=== PATIENT | female | born 1990 | race African-American/Black ===

== ENCOUNTER 2017-07-19 19:32 | Emergency (ER) | payer MEDICAID, OTHER ==
[~2017-07-19] VITALS: Ht 162.6 cm; Wt 86.5 kg
[~2017-07-19 19:32] MED LIST: NONE REPORTED
[2017-07-19] MEDS ORDERED: KETOROLAC 60MG/2ML VIAL IM ONE (23:00)
[2017-07-20 02:30] VITALS: BP 119/51
== END 2017-07-20 03:53 | disposition home or self-care (01) ==
LOC: ER 20:28
DX: S16.1XXA Strain of muscle, fascia and tendon at neck level, initial encounter (principal); F17.210 Nicotine dependence, cigarettes, uncomplicated; V49.9XXA Car occupant (driver) (passenger) injured in unspecified traffic accident, initial encounter; R41.82 Altered mental status, unspecified; Y92.410 Unspecified street and highway as the place of occurrence of the external cause
CPT/HCPCS: 70450; 72125; 81025; 96372; 99284; J1885; L0172

== ENCOUNTER 2021-12-18 23:38 | Emergency (ER) | payer MEDICAID ==
[~2021-12-18] VITALS: Ht 162.6 cm; Wt 58.0 kg
[2021-12-18 23:49] VITALS: BP 99/68
[2021-12-19] MEDS ORDERED: CEPHALEXIN 250MG CAPSULE PO ONE (03:00)
[2021-12-19] MEDS ORDERED: IBUPROFEN 600MG TABLET PO ONE (03:00)
[2021-12-19] MEDS ORDERED: CEPH500C2 MT (03:27)
[2021-12-19] MEDS ORDERED: IBUP-2029 MT (03:27)
== END 2021-12-19 04:08 | disposition home or self-care (01) ==
LOC: ER 23:38
DX: L03.115 Cellulitis of right lower limb (principal); Z98.890 Other specified postprocedural states
CPT/HCPCS: 81025; 99283